=== PATIENT | female | born 1950 | race Caucasian/White ===

== ENCOUNTER 2022-09-16 09:14 | Outpatient (OUT) | payer MEDICARE, SELFPAY ==
--- NOTE | 2022-09-16 11:11 | P.CN_ITS ---
Consult Note: HPI Data of Consult Patient: new to practice Consult date: 09/16/22 Requesting Physician: Enedina Lazcano MD Primary Care Provider: Non-Staff Physician, Consult Narrative Reason for consult: low back, left leg pain Narrative: this is a pleasant 72-year-old female who presents for evaluation. She notes pain that radiates into her left lower extremity. She recently underwent a left knee injection from her orthopedic surgeon, but this did not provide any relief of these symptoms. She was previously evaluated by neurosurgery, who put her through a course of physical therapy, which initially helped significantly. She now notes persistence of claudication symptoms into the left lower extremity. She previously was able to walk several miles, but in the last three months, she can barely make it a quarter of a mile without her leg feeling extremely heavy. She continues in her physical therapy exercises for the past greater than three months, though these have become less effective. She has utilized Tylenol and ibuprofen for greater than three months. She denies adverse medication side ef fects or loss of bowel or bladder control. cc:: CC: Enedina Lazcano MD Review of Systems ROS Status of ROS 10 or more systems reviewed and unremarkable except as noted in history and below Exam Constitutional Common normals: no apparent distress, oriented x3 and healthy appearing Respiratory Common normals: normal respiratory effort Effort & inspection: able to speak in complete sentences Back & Pelvis Other: tenderness to palpation throughout the lumbar spine and paraspinal musculature. Pain is elicited with flexion, extension, and lateral rotation of the lumbar spine. Facet loading maneuvers are positive bilaterally. Strength remains unremarkable throughout the bilateral lower extremities except for decreased strength rated at four out of five in the left quadriceps for Jeronimo. Sensation is noted to be unremarkable throughout the bilateral lower extremities except for dysesthesia in the left L3, L4, L5 dermatomal distributions. Coordination remains intact. Gait remains nonantalgic. Extremity Common normals: normal to inspection Neuro Common normals: oriented x3, CN's II-XII intact bilaterally and no focal motor deficits Psych Common normals: mental status grossly normal and cooperative Assessment and Plan Assessment and Plan (1) Lumbar stenosis with neurogenic claudication: (2) Lumbar spondylosis: Plan this is a pleasant 72-year-old female who presents for evaluation. She has failed physical and medical modalities, as listed above. She does not have any advanced imaging to review, so given her failure to respond to her physical therapy and home exercises for over three months, coupled with her failure to respond to conservative measures, I would like her to undergo a lumbar MRI without contrast for further assessment. She is in agreement with this plan. Medications were reviewed, and no changes were made at this time. She will follow up after the imaging is complete.
== END 2022-09-16 09:15 | disposition home or self-care (01) ==
LOC: PM 09:14
PROVIDERS: Visit Provider Anesthesiology
DX: M47.816 Spondylosis without myelopathy or radiculopathy, lumbar region (principal); M48.062 Spinal stenosis, lumbar region with neurogenic claudication
CPT/HCPCS: G0463

== ENCOUNTER 2022-10-14 13:46 | Outpatient (OUT) | payer MEDICARE, SELFPAY ==
--- NOTE | 2022-10-14 14:45 | P.CN_ITS ---
Consult Note: HPI Data of Consult Patient: known to practice within the last 3 years Consult date: 10/14/22 Requesting Physician: Enedina Lazcano MD Primary Care Provider: Non-Staff Physician, Consult Narrative Reason for consult: Low back, left leg pain Narrative: this is a pleasant 72-year-old female who presents for assessment. She has persistence of pain throughout her low back that radiates into the left lower extremity. Her lower imaging was reviewed, which is significant for multiple levels of degenerative disc disease and spondylosis, as well as multiple areas of stenosis, worst at L4-L5 and L5-S1 on the left side. She continues to engage in provider directed home exercises, which she is on for greater than three months. She continues to utilize Tylenol, which she is on for over three months. She recently took a Medrol Dosepak, which provided substantial relief, but her pain has now started to creep back. She otherwise denies adverse medication side effects or loss of bowel or bladder control. cc:: CC: Enedina Lazcano MD Review of Systems ROS Status of ROS 10 or more systems reviewed and unremarkable except as noted in h istory and below Meds Home Medications and Allergies Home Medications Medication Instructions Recorded Confirmed Type acetaminophen 500 mg tablet 500 mg PO BID PRN pain 09/16/22 09/16/22 History (Tylenol Extra Strength) aspirin 81 mg capsule 81 mg PO DAILY 09/16/22 09/16/22 History bempedoic acid 180 mg tablet 180 mg PO DAILY 09/16/22 09/16/22 History (Nexletol) fish, borage, flaxseed oils-omega 1 cap PO DAILY 09/16/22 09/16/22 History 3,6,9 cb #1 400 mg-400 mg-400 mg cap (Triple [place] 3-6-9) glucosamine-chondroitin 500 mg-400 1 tab PO DAILY 09/16/22 09/16/22 History mg tablet losartan 50 mg tablet 50 mg PO DAILY 09/16/22 09/16/22 History magnesium 200 mg tablet 400 mg PO DAILY 09/16/22 09/16/22 History Allergies Allergy/AdvReac Type Severity Reaction Status Date / Time No Known Drug Allergies Allergy Verified 09/16/22 13:44 Exam Constitutional Common normals: no apparent distress, oriented x3 and healthy appearing Respiratory Common normals: normal respiratory effort Effort & inspection: able to speak in complete sentences Back & Pelvis Other: Tenderness to palpation of lower lumbar spine and paraspinal muscular trip. Pain is elicited with flexion, extension, and lateral rotation of the lumbar spine. Similar maneuvers are positive bilaterally. Strength noted to be unremarkable throughout bilateral lower extremity except for decreased strength rated at four out of five in the left quadriceps femoris, anterior tibialis. Sensation remains unremarkable throughout bilateral lower extremities except for dysesthesia in the left L4, L5 dermatomal distributions. Pronation remains intact. Gait remains nonantalgic. Extremity Common normals: normal to inspection Neuro Common normals: oriented x3, CN's II-XII intact bilaterally and no focal motor deficits Psych Common normals: mental status grossly normal and cooperative Assessment and Plan Assessment and Plan (1) Lumbar stenosis with neurogenic claudication: (2) Lumbar spondylosis: Plan this is a pleasant 72-year-old female who presents for assessment. She notes pain throughout her low back that radiates into the left lower extremity. Much of this pain was substantially improved after she was prescribed a Medrol Dosepak, but this pain has now started to return. She recently underwent lumbar imaging, as noted above. Given her symptomatology and imaging findings, it is prudent to attempt left L4-L5, L5-S1 transfemoral epidural steroid injection to provide analgesia. She will call to schedule this when she is ready. Medications were reviewed, no changes were made at this time. She will follow-up after the procedure is completed.
== END 2022-10-14 13:47 | disposition home or self-care (01) ==
LOC: PM 13:47
PROVIDERS: Visit Provider Anesthesiology
DX: M47.816 Spondylosis without myelopathy or radiculopathy, lumbar region (principal); M48.062 Spinal stenosis, lumbar region with neurogenic claudication
CPT/HCPCS: G0463

== ENCOUNTER 2022-12-09 09:04 | Day surgery (SDC) | payer MEDICARE, SELFPAY ==
[2022-12-09 09:51] VITALS: BP 171/86; PULSE 68; RESP 16; TEMP 36.8; O2SAT 98
[2022-12-09] MEDS: IOHEXOL 240 MG/ML - 10 ML VIAL INJ (10:40)
[2022-12-09] MEDS: BUPIVACAINE HCL 0.25% PF 25 MG/10 ML VIAL INJ (10:40)
[2022-12-09] MEDS: LIDOCAINE HCL 2% PF 100 MG/5 ML VIAL INJ (10:40)
[2022-12-09] MEDS: TRIAMCINOLONE ACETONIDE 40 MG/ML VIAL INJ (10:41)
[2022-12-09 10:42] VITALS: BP 149/65; BP 151/65; PULSE 54; PULSE 55; RESP 18; O2SAT 98; O2SAT 99
--- NOTE | 2022-12-09 10:42 | P.ON_ITS ---
Date of procedure: 12/09/22 Pre-op diagnosis: Lumbar stenosis with neurogenic claudication Post-op diagnosis: same as pre-op Procedure: Procedure: Left L4-5, L5-S1 transforaminal epidural steroid injection Medications: Bupivacaine 0.25% 2cc, kenalog 80mg The patient was seen and examined in the preoperative holding area.? Informed consent was obtained and placed on the chart.? Patient was brought to the medical procedure unit and placed in the prone position where a timeout was completed verifying the correct patient, procedure site, position, and planned special equipment using sterile aseptic technique.? Under direct fluoroscopic visualization a 25-gauge Quincke tipped spinal needle was advanced to the designated neural foramen where contrast dye was injected to show adequate spread.? The needle was inserted at level left L4-5. There was no evidence of vascular or adverse uptake.? Epidural spread was appreciated.? The above- mentioned injectate was then placed in a 1.5 mL aliquot preceded by negative aspiration.? The needle was removed. The needle was inserted and the procedure repeated at level left L5-S1.? The surgery site was covered.? Patient was taken to the postprocedural recovery area and monitored for an appropriate length of time before found suitable for discharge in the accompaniment of a responsible adult. Anesthesia: Local Surgeon: Enedina Lazcano Pathology: none sent Condition: stable Disposition: no change
== END 2022-12-09 10:45 | disposition home or self-care (01) ==
PROVIDERS: Visit Provider Anesthesiology
DX: M48.062 Spinal stenosis, lumbar region with neurogenic claudication (principal)
CPT/HCPCS: 64483; 64484; Q9966

== ENCOUNTER 2022-12-26 10:13 | Outpatient (OUT) | payer MEDICARE, SELFPAY ==
--- NOTE | 2022-12-26 10:42 | P.CN_ITS ---
Consult Note: HPI Data of Consult Patient: known to practice within the last 3 years Requesting Physician: Joann Max NP Primary Care Provider: Non-Staff Physician, Consult Narrative Reason for consult: F/u Narrative: Armida Trujillo a pleasant 72 year old female presents for evaluation and management of low back and right hip pain. Left L4-5 L5-S1 TFESI provided 100% pain relief and functional improvement, today complaining of 1/10 right hip pain. Patient continues to be active and particate in HEP. cc:: CC: Joann Max NP Review of Systems ROS Status of ROS 10 or more systems reviewed and unremarkable except as noted in history and below Musculoskeletal Reports: joint pain Meds Home Medications and Allergies Home Medications Medication Instructions Recorded Confirmed Type acetaminophen 500 mg tablet 500 mg PO BID PRN pain 09/16/22 12/09/22 History (Tylenol Extra Strength) aspirin 81 mg capsule 81 mg PO DAILY 09/16/22 12/09/22 History bempedoic acid 180 mg tablet 180 mg PO DAILY 09/16/22 12/09/22 History (Nexletol) fish, borage, flaxseed oils-omega 1 cap PO DAILY 09/16/22 12/09/22 History 3,6,9 cb #1 400 mg-400 mg-400 mg cap (Triple [place] 3-6-9) glucosamine-chondroitin 500 mg-400 1 tab PO DAILY 09/16/22 12/09/22 History mg tablet losartan 50 mg tablet 50 mg PO DAILY 09/16/22 12/09/22 History magnesium 200 mg tablet 400 mg PO DAILY 09/16/22 12/09/22 History Allergies Allergy/AdvReac Type Severity Reaction Status Date / Time No Known Drug Allergies Allergy Verified 12/09/22 09:56 Exam Constitutional Documenting provider has reviewed patient's vital signs: yes Common normals: no apparent distress, oriented x3, healthy appearing, alert and well nourished General appearance: cooperative HENMT Common normals: normocephalic, hearing grossly normal bilaterally and moist oral mucous membranes Head and scalp: normocephalic Eye Common normals: PERRL Pupil: PERRL Neck & C-Spine Common normals: full ROM General: normal visual inspection Chest Common normals: inspection of chest normal Respiratory Common normals: normal respiratory effort, no retractions and no use of accessory muscles Back & Pelvis Sacroiliac joints: SI joint(s) abnormal (tenderness over PSIS on right, positive NIRALI gaenslens and thigh thrust. ) Extremity Common normals: normal to inspection and full ROM Neuro Common normals: oriented x3, CN's II-XII intact bilaterally, moves all extremities, no focal motor deficits, no sensory deficits noted and deep tendon reflexes 2+ bilaterally Sensorium/orientation: alert Motor exam: strength 5/5 throughout and no movement abnormalities noted Psych Common normals: mental status grossly normal, thought process normal, cooperative, affect normal, speech normal and activity/motor behavior normal Speech: normal speech Thought process: normal thought process Results Additional Findings Additional findings: I have checked an [facility] report on this patient today and there are no aberrancies noted in the prescribing history.?? A drug screen was completed and reviewed within the last year, and if there has not been a drug screen completed we ordered one today to monitor higher risk, state monitored pain medication use. As part of providing excellent, safe, comprehensive care, the following was completed at our patient's visit: 1. A medication reconciliation and review to ensure accurate knowledge of current/active medications, including asking our patients to inform us about any [id number] medications or herbal remedies/nutritional supplements/alternative remedies. 2. A review to specifically ensure our patients have had annual screening for: elevated body mass index (BMI), tobacco use, screening for depression, and screening for unhealthy alcohol use. When screening is concerning, patients are provided with education and the specific recommendation to discuss the concerning health issue and treatment options with their primary care provider. Assessment and Plan Assessment and Plan (1) Lumbar spondylosis: (2) Lumbar stenosis with neurogenic claudication: (3) Chronic right sacroiliac joint pain: Plan discussed TFESI providing ongoing 100% pain relief and functional improvement discussed right SIJ injection under fluoroscopy, patient does not feel pain is bad enough right now will call to f/u in the future
== END 2022-12-26 10:14 | disposition home or self-care (01) ==
LOC: PM 10:14
PROVIDERS: Visit Provider Nurse Practitioner
DX: M47.816 Spondylosis without myelopathy or radiculopathy, lumbar region (principal); M53.3 Sacrococcygeal disorders, not elsewhere classified; M48.062 Spinal stenosis, lumbar region with neurogenic claudication
CPT/HCPCS: G0463